=== PATIENT | female | born 1940 | race Caucasian/White ===

== ENCOUNTER 2022-03-22 14:10 | Inpatient (IN) ==
[2022-03-22] MEDS ORDERED: 0.9 % SODIUM CHLORIDE 250 ML IV SCH (14:30)
--- NOTE | 2022-03-22 14:37 | Emergency Department Note ---
HPI General Chief complaint: Bleeding Other Stated complaint: bleeding ulcer Time Seen by Provider: 03/22/22 14:16 Source: patient Mode of arrival: ambulatory Limitations: no limitations History of Present Illness HPI Narrative: Narrative: 81-year-old female presents to the emergency department concerned she may have an upper GI bleed. This is happened to her in the past. She does take omeprazole and is also taking Eliquis. Patient states that for the past 5 days she has had black stools. She has had no change in the frequency or consistency of her stools. She denies abdominal pain, nausea, vomiting, or change in appetite. She denies any recent changes in her medication. Patient has no other complaints today. Related Data Home Medications Medication Instructions Recorded Confirmed atorvastatin 20 mg tablet 10 mg PO HS 11/08/17 03/27/19 brimonidine 0.2 %-timolol 0.5 % 1 drp BOTH EYES Q12H 11/08/17 03/27/19 eye drops (Combigan) levothyroxine 125 mcg tablet 125 mcg PO DAILY 11/08/17 03/27/19 travoprost 0.004 % eye drops 1 gtt OU HS 11/08/17 03/27/19 (Travatan Z) ascorbate calcium (vitamin C) 500 500 mg PO QDAY 12/24/18 03/27/19 mg tablet denosumab [Prolia] SUBCUT 12/24/18 12/24/18 multivitamin [Multivitamins FC] PO 12/24/18 12/24/18 omeprazole 40 mg capsule,delayed 40 mg PO QDAY 12/24/18 03/27/19 release Allergies Allergy/AdvReac Type Severity Reaction Status Date / Time No Known Drug Allergies Allergy Verified 09/29/19 10:08 Review of Systems ROS ROS Narrative: Narrative: All systems ED: reviewed and negative except as stated. PFSH Narrative Patient History Narrative: Narrative: Medical/Surgical/Family History All Active Problems (Updated 03/22/22 @ 15:47 by Shelby Robbins PA-C) Neoplasm (Chronic) Bilateral hydronephrosis (Chronic) Ulcer (Chronic) GI bleed (Chronic) Iron deficiency (Chronic) Mixed hyperlipidemia (Chronic) Chronic kidney disease, stage 3 (Chronic) Chest pain (Chronic) Anemia (Chronic) Hypothyroidism (Chronic) Hypertension (Chronic) Other disorders of kidney and ureter in diseases classified elsewhere (Chronic) Nocturia (Chronic) Medical History (Updated 03/22/22 @ 15:47 by Shelby Robbins PA-C) Anemia Bilateral hydronephrosis Chest pain Chronic kidney disease, stage 3 GI bleed Hypertension Hypothyroidism Iron deficiency Mixed hyperlipidemia Neoplasm Urothelial neoplasm Nocturia Other disorders of kidney and ureter in diseases classified elsewhere Ulcer Surgical History (Updated 12/24/18 @ 09:05 by Renata Hodge) History of arthroscopy of left knee (~2011) History of arthroscopy of right knee (~2002) History of cholecystectomy (~2012) History of dilation and curettage (~1993) History of endoscopy Family History (Updated 12/24/18 @ 09:34 by Renata Hodge) Other No pertinent family history Social History Smoking Status: Never smoker Alcohol Intake Frequency: does not drink Exam Narrative Narrative: Narrative: General Limitations: no limitations General appearance: Present alert and in no apparent distress Head Head: Present atraumatic and normocephalic Eye Eye: Present normal appearance and other (Conjunctive is not pale) ENT ENT: Present normal oropharynx Neck Neck: Absent lymphadenopathy Respiratory Respiratory: Present normal lung sounds bilaterally Cardiovascular Cardiovascular: Present normal heart sounds Adbominal Abdominal: Present soft and normal bowel sounds; Absent tenderness Rectal Rectal: Present normal rectal tone, heme (+) stool and black stool Extremities Extremities: Present normal inspection; Absent pedal edema or calf tenderness Back Back: Present normal inspection; Absent CVA tenderness (R) or CVA tenderness (L) Neurological Neurological: Present alert and oriented X3 Psychiatric Psychiatric: Present normal affect Skin Skin: Present warm (WNL) and dry Course Course Course Narrative: Labs were reviewed per the electronic health record. Patient was dosed with Protonix 80 mg IV. I spoke with Dr. Guevara who is agreed to scope her tomorrow but requested that a hospitalist admit her. I spoke with Dr. Peralta who has agreed to admit this patient. After speaking with Dr. Peralta, IV normal saline was ordered. Vital Signs Vital signs: Vital Signs Temperature 98.1 F 03/22/22 14:12 Pulse Rate 71 03/22/22 14:12 Respiratory Rate 16 03/22/22 14:12 Blood Pressure 154/77 03/22/22 14:12 Pulse Oximetry (%) 96 03/22/22 14:12 Temperature 98.1 F 03/22/22 14:12 Pulse Rate 65 03/22/22 15:30 Respiratory Rate 16 03/22/22 14:12 Blood Pressure 129/74 03/22/22 15:30 Pulse Oximetry (%) 99 03/22/22 15:30 MDM MDM Narrative Medical decision making narrative: Narrative: Lab Data Result diagrams: 03/22/22 14:37 03/22/22 14:37 Labs: Lab Results 03/22/22 03/22/22 Range/Units 14:37 14:42 WBC 5.2 (4.5-11.0) K/mcL RBC 3.10 L (3.59-5.38) M/mcL Hgb 8.8 L (11.2-15.7) g/dL Hct 28.5 L (34.1-44.9) % POC Hct 25.0 L (36-48) MCV 91.9 (80.0-100.0) fL MCH 28.4 (26.0-34.0) pg MCHC 30.9 L (31.0-36.0) g/dL RDW 13.2 (11.5-14.5) % Plt Count 193 (140-440) K/mcL MPV 10.2 (7.4-10.4) fL Neut % (Auto) 69.7 (38.0-78.0) % Lymph % (Auto) 19.0 (15.5-49.0) % [place] % (Auto) 9.7 (1.0-12.0) % Eos % (Auto) 1.0 (0.0-7.0) % Baso % (Auto) 0.6 (0.0-2.0) % Lymph # (Auto) 0.98 L (1.50-4.80) K/mcL [place] # (Auto) 0.50 (0.10-0.90) K/mcL Eos # (Auto) 0.05 (0.00-0.70) K/mcL Baso # (Auto) 0.03 (0.00-0.30) K/mcL Absolute Neutrophils 3.60 (1.80-8.00) K/mcL POC Sodium 143 (133-145) POC Potassium 3.7 (3.3-5.1) POC Chloride 111 H (96-108) POC Total CO2 21.0 L (22-30) POC BUN 32 H (6-20) POC Creatinine 1.8 H (0.6-1.2) POC Glucose 106 H (70-105) POC WB Ioniz Calcium 1.20 (1.16-1.32) Discharge Plan Patient/Caregiver Discharge Instructions Pt seen by SALVAGE GRINDER/PA only: Yes Clinical Impression: GI bleed Patient Disposition: Xfer As Inpt ([facility]) Follow up with: Carri Brown MD [Primary Care Provider] - Prescriptions: No Action omeprazole 40 mg capsule,delayed release 40 mg capsule,delayed release(DR/EC) 40 mg PO QDAY 0RF ascorbate calcium (vitamin C) 500 mg tablet 500 mg PO QDAY 0RF denosumab subcut 0RF multivitamin PO 0RF atorvastatin 20 MG tablet 10 mg PO HS 0RF travoprost [Travatan Z] 1 GTT drops 1 gtt OU HS 0RF levothyroxine 125 MCG tablet 125 mcg PO DAILY 0RF brimonidine-timolol [Combigan] 5 ML drops 1 drp BOTH EYES Q12H 0RF
[2022-03-22 14:47] LABS: POC Calcium, Ionized 1.2 (1.16-1.32); POC Creatinine 1.8 (0.6-1.2); POC Potassium 3.7 (3.3-5.1)
[2022-03-22] MEDS ORDERED: PANTOPRAZOLE 40 MG VIAL IV ONE (14:56)
[2022-03-22 15:28] LABS: Basophils # (Auto) 0.03 K/mcL (0.00-0.30); Basophils % (Auto) 0.6 % (0.0-2.0); Eosinophils # (Auto) 0.05 K/mcL (0.00-0.70); Hematocrit 28.5 % (34.1-44.9); Hemoglobin 8.8 g/dL (11.2-15.7); Lymphocytes # (Auto) 0.98 K/mcL (1.50-4.80); Mean Cell Volume 91.9 fL (80.0-100.0); Mean Corpuscular HGB Conc 30.9 g/dL (31.0-36.0); Mean Platelet Volume 10.2 fL (7.4-10.4); Monocytes % (Auto) 9.7 % (1.0-12.0); Neutrophils % (Auto) 69.7 % (38.0-78.0); Platelet Count 193 K/mcL (140-440); Red Cell Distribution Width 13.2 % (11.5-14.5); WBC 5.2 K/mcL (4.5-11.0)
[2022-03-22] MEDS ORDERED: 0.9 % SODIUM CHLORIDE 1,000 ML IV ONE (15:44)
--- NOTE | 2022-03-22 16:06 | Internal Med History&Physical ---
HPI History of Present Illness Patient information: Note initiated : 03/22/22 at 4:04 pm Service Date, if different from initiated Date: [] Patient: Judi Haro a 81 y/o F admitted on for bleeding ulcer. Chief Complaint: [black stool] Chief complaint: black stool History of present illness: Ms. Haro is a 81 year old F history of kidney cancer status post nephrectomy, pulmonary embolism on Eliquis, essential hypertensions, mixed dyslipidemia, hypothyroidism, chronic kidney disease stage III, presenting with 5-day history of black stool. Last prior similar episode about 8 or 9 years ago. Over the past 5 days, she is complaining of having black stool. She denies any bright red blood per rectum. She denies any hematemesis. She denies any nausea or vomiting. She denies any abdominal pain. She denies any chest pain or palpitations. She denies any shortness of breath. She denies any lightheadedness. Vital signs at ED presentations appears to be all within normal limits. H&H 8.8 and 28.5, with baseline 14.5 and 44.2, respectively. Serum creatinine level 1.8 with baseline 1.2. Admission request was made for likely upper GI bleeding with general surgeon Dr. Guevara being consulted on the case. Constitutional Constitutional: Absent chills, excessive sweating, fatigue, fever(s) or weakness EENT Eyes: Absent blurry vision, change in vision, loss of vision or other visual disturbances Ears: Absent decreased hearing or tinnitus Nose, mouth and throat: Absent abnormal hearing, dry mouth, headache(s), nasal congestion or sore throat Cardiovascular Cardiovascular: Absent chest pain, chest pain at rest, edema, irregular heart rhythm or palpatations Respiratory Respiratory: Absent cough, dyspnea or wheezing Gastrointestinal Gastrointestinal: Absent abdominal pain, constipation, diarrhea, nausea or vomiting Additional comments: Black stool Musculoskeletal Musculoskeletal: Absent back pain, deformity, limited range of motion, muscle cramps, muscle weakness or numbness Integumentary Integumentary: Absent lesions, rash or wounds Neurological Neurological: Absent focal weakness, headache(s) or numbness Psychiatric Psychiatric: Absent anxiety, depression or hallucinations PFSH PFSH All Active Problems (Updated 03/22/22 @ 16:17 by Jeremiah Peralta MD) Stage 1 acute kidney injury (Acute) Upper gastrointestinal bleeding (Acute) Neoplasm (Chronic) Bilateral hydronephrosis (Chronic) Ulcer (Chronic) GI bleed (Chronic) Iron deficiency (Chronic) Mixed hyperlipidemia (Chronic) Chronic kidney disease, stage 3 (Chronic) Chest pain (Chronic) Anemia (Chronic) Hypothyroidism (Chronic) Hypertension (Chronic) Other disorders of kidney and ureter in diseases classified elsewhere (Chronic) Nocturia (Chronic) Medical History (Updated 03/22/22 @ 16:17 by Jeremiah Peralta MD) Anemia Bilateral hydronephrosis Chest pain Chronic kidney disease, stage 3 GI bleed Hypertension Hypothyroidism Iron deficiency Mixed hyperlipidemia Neoplasm Urothelial neoplasm Nocturia Other disorders of kidney and ureter in diseases classified elsewhere Ulcer Surgical History (Updated 12/24/18 @ 09:05 by Renata Hodge) History of arthroscopy of left knee (~2011) History of arthroscopy of right knee (~2002) History of cholecystectomy (~2012) History of dilation and curettage (~1993) History of endoscopy Family History (Updated 12/24/18 @ 09:34 by Renata Hodge) Other No pertinent family history Social History (Updated 12/24/18 @ 09:00 by Renata Hodge) alcohol intake frequency: does not drink MEDS/ALLERGIES Home Medications and Allergies Home Medications Medication Instructions Recorded Confirmed Type atorvastatin 20 mg tablet 10 mg PO HS 11/08/17 03/27/19 History brimonidine 0.2 %-timolol 0.5 % 1 drp BOTH EYES Q12H 11/08/17 03/27/19 History eye drops (Combigan) levothyroxine 125 mcg tablet 125 mcg PO DAILY 11/08/17 03/27/19 History travoprost 0.004 % eye drops 1 gtt OU HS 11/08/17 03/27/19 History (Travatan Z) ascorbate calcium (vitamin C) 500 500 mg PO QDAY 12/24/18 03/27/19 History mg tablet denosumab [Prolia] SUBCUT 12/24/18 12/24/18 History multivitamin [Multivitamins FC] PO 12/24/18 12/24/18 History omeprazole 40 mg capsule,delayed 40 mg PO QDAY 12/24/18 03/27/19 History release Allergies Allergy/AdvReac Type Severity Reaction Status Date / Time No Known Drug Allergies Allergy Verified 09/29/19 10:08 EXAM Constitutional Vitals: Temp Pulse Resp BP Pulse Ox 36.7 C 73 16 133/102 98 03/22/22 14:12 03/22/22 15:41 03/22/22 14:12 03/22/22 15:41 03/22/22 15:41 General appearance: cooperative and no acute distress Head Head exam: Present atraumatic and normocephalic Eye Eye exam: Present EOMI and PERRL ENT ENT exam: Present mucous membranes moist, normal exam and normal external ear exam Neck Neck exam: Present normal inspection; Absent lymphadenopathy, tenderness or thyromegaly Respiratory Respiratory exam: Absent accessory muscle use, respiratory distress or wheezes Cardiovascular Cardiovascular exam: Present normal rate and rhythm and systolic murmur; Absent JVD GI/Abdominal GI/Abdominal exam: Present normal bowel sounds and soft; Absent organomegaly or tenderness Extremities Exam Extremities exam: Present full ROM, normal capillary refill and normal inspection; Absent tenderness Neurological Exam Neurological exam: Present alert, CN II-XII intact and oriented X3; Absent motor sensory deficit Psychiatric Psychiatric exam: Present normal affect and normal mood; Absent anxious or depressed Skin Skin exam: Present dry and intact DATA Data Completed and Pending Labs: Labs from last 24 hours 03/22/22 03/22/22 03/22/22 14:42 14:37 14:37 WBC 5.2 RBC 3.10 L Hgb 8.8 L Hct 28.5 L POC Hct 25.0 L MCV 91.9 MCH 28.4 MCHC 30.9 L RDW 13.2 Plt Count 193 MPV 10.2 Neut % (Auto) 69.7 Lymph % (Auto) 19.0 [place] % (Auto) 9.7 Eos % (Auto) 1.0 Baso % (Auto) 0.6 Lymph # (Auto) 0.98 L [place] # (Auto) 0.50 Eos # (Auto) 0.05 Baso # (Auto) 0.03 Absolute Neutrophils 3.60 POC Sodium 143 Sodium Pending POC Potassium 3.7 Potassium Pending POC Chloride 111 H Chloride Pending Carbon Dioxide Pending POC Total CO2 21.0 L Anion Gap Pending POC BUN 32 H BUN Pending Creatinine Pending POC Creatinine 1.8 H GFR Calculation Pending Glucose Pending POC Glucose 106 H Calcium Pending POC WB Ioniz Calcium 1.20 Total Bilirubin Pending AST Pending ALT Pending Alkaline Phosphatase Pending Total Protein Pending Albumin Pending Globulin Pending Albumin/Globulin Ratio Pending A/P Assessment and plan (1) Upper gastrointestinal bleeding: Status: Acute (2) Chronic kidney disease, stage 3: Status: Chronic (3) Stage 1 acute kidney injury: Status: Acute (4) Hypothyroidism: Status: Chronic (5) Hypertension: Status: Chronic (6) Mixed hyperlipidemia: Status: Chronic Narrative A/P Narrative: Assessment and Plans: 1. GI bleeding, likely upper: Inpatient med surg telemetry Consult Dr. Guevara for potential endoscopy NPO with IV fluid Protonix IV BID Hold Eliquis H/H this evening, then cbc daily to trend H/H Type and cross pRBC 2. Essential HTN: Currently normotensive Continue oral antihypertensives 3. Mixed dyslipidemia: Continue statin therapy 4. Hypothyroidism: Continue thyroid replacement therapy 5. Stage 1 ZACHARY in the context of CKD III: Avoid nephrotoxic agents NPO with IV fluid CMP in the morning to trend kidney functions GI ppx: Protonix IV BID DVT ppx: SCDs Code status: Full Prognosis: guarded Disposition: inpatient med surg telemetry Time Spent With Patient Time: Total time spent is greater than 50% in coordination of care (as documented) at patient's floor/unit and/or counseling patient: Total time spent with greater than 50% in coordination of care (as documented) at patient's floor/unit and/or counseling patient:: 50 - 70 minutes
[2022-03-22 16:49] LABS: ALT/SGPT 11 U/L (<40); AST/SGOT 18 U/L (<32); Albumin 3.6 gm/dL (3.2-5.2); Albumin/Globulin Ratio 1.4 (1.0-2.3); Alkaline Phosphatase 32 U/L (39-117); Bilirubin,Total 0.3 mg/dL (0.1-1.0); Blood Urea Nitrogen 32 mg/dL (8-23); Calcium 9.2 mg/dL (8.6-10.4); Carbon Dioxide 20 mmol/L (22-30); Chloride 108 mmol/L (96-108); Globulin 2.5 gm/dL (2.2-3.7); Glomerular Filtration Rate 30; Glucose 105 mg/dL (70-105)
[2022-03-22] MEDS ORDERED: traZODone HCL 50 MG TABLET PO PRN (17:21)
[2022-03-22] MEDS ORDERED: ONDANSETRON 4 MG/2 ML VIAL IV PRN (17:21)
[2022-03-22] MEDS ORDERED: ACETAMINOPHEN 325 MG TABLET PO PRN (17:21)
[2022-03-22] MEDS ORDERED: IPRATROPIUM/ALBUTEROL 3 ML AMPUL.NEB NEB PRN (17:21)
[2022-03-22] MEDS: 0.9 % SODIUM CHLORIDE 1,000 ML IV SCH (18:23)
[2022-03-22] MEDS: PANTOPRAZOLE 40 MG VIAL IV SCH (18:24)
[2022-03-22 18:50] LABS: Hematocrit 26.3 % (34.1-44.9); Hemoglobin 8.4 g/dL (11.2-15.7)
[2022-03-22] MEDS: ATORVASTATIN 20 MG TABLET PO SCH (20:52)
[2022-03-22] MEDS: 0.9 % SODIUM CHLORIDE 10 ML SYRINGE IV SCH (20:53)
[2022-03-22] MEDS: BRIMONIDINE TIMOLOL OU SCH (20:53)
[2022-03-22] MEDS: TRAVOPROST OPHTH DROPS BOTTLE 2.5ML OU SCH (20:53)
[2022-03-23] MEDS: 0.9 % SODIUM CHLORIDE 10 ML SYRINGE IV SCH ×3 (04:53→20:24)
[2022-03-23] MEDS: 0.9 % SODIUM CHLORIDE 1,000 ML IV SCH ×3 (04:53→22:58)
[2022-03-23 06:32] LABS: Basophils # (Auto) 0.04 K/mcL (0.00-0.30); Basophils % (Auto) 1.1 % (0.0-2.0); Eosinophils # (Auto) 0.11 K/mcL (0.00-0.70); Hematocrit 25.6 % (34.1-44.9); Lymphocytes # (Auto) 0.94 K/mcL (1.50-4.80); Lymphocytes % (Auto) 25.8 % (15.5-49.0); Mean Cell Volume 92.8 fL (80.0-100.0); Mean Corpuscular HGB Conc 31.3 g/dL (31.0-36.0); Monocytes # (Auto) 0.34 K/mcL (0.10-0.90); Monocytes % (Auto) 9.3 % (1.0-12.0); Neutrophils % (Auto) 60.8 % (38.0-78.0); Platelet Count 158 K/mcL (140-440); RBC 2.76 M/mcL (3.59-5.38); Red Cell Distribution Width 13.2 % (11.5-14.5); WBC 3.7 K/mcL (4.5-11.0)
[2022-03-23 07:04] LABS: ALT/SGPT 8 U/L (<40); AST/SGOT 15 U/L (<32); Albumin 3.4 gm/dL (3.2-5.2); Albumin/Globulin Ratio 1.9 (1.0-2.3); Alkaline Phosphatase 29 U/L (39-117); Bilirubin,Total 0.3 mg/dL (0.1-1.0); Blood Urea Nitrogen 20 mg/dL (8-23); Calcium 8.2 mg/dL (8.6-10.4); Carbon Dioxide 23 mmol/L (22-30); Chloride 112 mmol/L (96-108); Globulin 1.8 gm/dL (2.2-3.7); Glomerular Filtration Rate 35; Glucose 95 mg/dL (70-105)
[2022-03-23] MEDS: PANTOPRAZOLE 40 MG VIAL IV SCH ×2 (07:20→17:11)
[2022-03-23] MEDS: LEVOTHYROXINE 125 MCG TABLET PO SCH (07:20)
--- NOTE | 2022-03-23 08:53 | General Surgery Consult Note ---
HPI Data of Consult Patient: new to practice Consult date: 03/22/22 Primary Care Provider: Carri Brown Consult Narrative Chief complaint: GI bleed History of present illness: This is a pleasant 81-year-old female who presents with dark melanotic stools. She has a history of being on Eliquis for a DVT several years ago after having a joint replacement. She has a history of past GI bleed from what she describes as Shawn ulcers secondary to a hiatal hernia. She presents with a couple days worth of bleed with decrease in hematocrit. I was asked to see the patient to perform a EGD to diagnose of bleeding. cc:: CC: Jeremiah Peralta MD PFS PFSH All Active Problems Stage 1 acute kidney injury (Acute) Upper gastrointestinal bleeding (Acute) Neoplasm (Chronic) Bilateral hydronephrosis (Chronic) Ulcer (Chronic) GI bleed (Chronic) Iron deficiency (Chronic) Mixed hyperlipidemia (Chronic) Chronic kidney disease, stage 3 (Chronic) Chest pain (Chronic) Anemia (Chronic) Hypothyroidism (Chronic) Hypertension (Chronic) Other disorders of kidney and ureter in diseases classified elsewhere (Chronic) Nocturia (Chronic) Medical History Anemia Bilateral hydronephrosis Chest pain Chronic kidney disease, stage 3 GI bleed Hypertension Hypothyroidism Iron deficiency Mixed hyperlipidemia Neoplasm Urothelial neoplasm Nocturia Other disorders of kidney and ureter in diseases classified elsewhere Ulcer Surgical History History of arthroscopy of left knee (~2011) History of arthroscopy of right knee (~2002) History of cholecystectomy (~2012) History of dilation and curettage (~1993) History of endoscopy Family History Other No pertinent family history Social History alcohol intake frequency: does not drink MEDS/ALLERGIES Home Medications and Allergies Home Medications Medication Instructions Recorded Confirmed Type denosumab [Prolia] SUBCUT 12/24/18 12/24/18 History omeprazole 40 mg capsule,delayed 40 mg PO QDAY 12/24/18 03/22/22 History release apixaban 5 mg tablet (Eliquis) 1 tab PO BID 03/22/22 03/22/22 History atorvastatin 10 mg tablet 1 tab PO HS 03/22/22 03/22/22 History cholecalciferol (vitamin D3) 50 1 tab PO QDAY 03/22/22 03/22/22 History mcg (2,000 unit) tablet (Vitamin D3) ferrous sulfate 325 mg (65 mg 325 mg PO QAM 03/22/22 03/22/22 History iron) tablet (FeroSul) latanoprost 0.005 % eye drops 1 drp OPHTHALMIC (EYE) QPM 03/22/22 03/22/22 History levothyroxine 75 mcg tablet 1 tab PO QDAY 03/22/22 03/22/22 History valsartan 80 mg tablet 1 tab PO HS 03/22/22 03/22/22 History Allergies Allergy/AdvReac Type Severity Reaction Status Date / Time No Known Drug Allergies Allergy Verified 09/29/19 10:08 Physical Examination Vital Signs Vital signs: Temp Pulse Resp BP Pulse Ox 97.0 F 66 16 146/79 96 03/23/22 08:00 03/23/22 08:00 03/23/22 08:00 03/23/22 08:00 03/23/22 08:00 General physical appearance General physical exam: well developed, well nourished and no distress Eyes Eye exam: PERRL and normal ocular movement ENT ENT exam: normal pinna, normal nares, normal mucosa, no hearing loss and no congestion Head Head exam IM: Present atraumatic and normocephalic Neck Neck exam: no masses, no bruits, trachea midline, no lymphadenopathy and no venous distension Cardiovascular Cardiovascular exam IM: Present normal rate and rhythm Respiratory Respiratory exam: normal expansion, normal respiratory effort, clear to percussion and clear to auscultation Abdomen Abdomen: Present soft, non tender and bowel sounds Hernia: Present none Genitourinary Genitourinary (Female): Present normal external genitalia Rectum Rectum: Present normal sphincter tone, no hemorrhoids, no tenderness, no masses and no bleeding Integumentary Integumentary: Present no rash, no growths and no abnormal pigmentation Neurologic Neurologic: Present normal coordination and normal sensation Musculoskeletal Musculoskeletal: Present normal gait and normal posture Psychiatric Psychiatric: Present oriented to time, oriented to person, oriented to place, speech is normal and memory intact Results Labs Result diagrams: 03/23/22 05:23 03/23/22 05:23 Labs: Abnormal lab results 03/22/22 03/22/22 03/22/22 Range/Units 14:37 14:37 14:42 WBC (4.5-11.0) K/mcL RBC 3.10 L (3.59-5.38) M/mcL Hgb 8.8 L (11.2-15.7) g/dL Hct 28.5 L (34.1-44.9) % POC Hct 25.0 L (36-48) MCHC 30.9 L (31.0-36.0) g/dL Lymph # (Auto) 0.98 L (1.50-4.80) K/mcL POC Chloride 111 H (96-108) Chloride (96-108) mmol/L Carbon Dioxide 20 L (22-30) mmol/L POC Total CO2 21.0 L (22-30) Anion Gap (8.0-16.0) POC BUN 32 H (6-20) BUN 32 H (8-23) mg/dL Creatinine 1.6 H (0.6-1.1) mg/dL POC Creatinine 1.8 H (0.6-1.2) POC Glucose 106 H (70-105) Calcium (8.6-10.4) mg/dL Alkaline Phosphatase 32 L (39-117) U/L Total Protein (5.9-8.4) gm/dL Globulin (2.2-3.7) gm/dL 03/22/22 03/23/22 03/23/22 Range/Units 18:16 05:23 05:23 WBC 3.7 L (4.5-11.0) K/mcL RBC 2.76 L (3.59-5.38) M/mcL Hgb 8.4 L 8.0 L (11.2-15.7) g/dL Hct 26.3 L 25.6 L (34.1-44.9) % POC Hct (36-48) MCHC (31.0-36.0) g/dL Lymph # (Auto) 0.94 L (1.50-4.80) K/mcL POC Chloride (96-108) Chloride 112 H (96-108) mmol/L Carbon Dioxide (22-30) mmol/L POC Total CO2 (22-30) Anion Gap 6.0 L (8.0-16.0) POC BUN (6-20) BUN (8-23) mg/dL Creatinine 1.4 H (0.6-1.1) mg/dL POC Creatinine (0.6-1.2) POC Glucose (70-105) Calcium 8.2 L (8.6-10.4) mg/dL Alkaline Phosphatase 29 L (39-117) U/L Total Protein 5.2 L (5.9-8.4) gm/dL Globulin 1.8 L (2.2-3.7) gm/dL Diabetes panel 03/22/22 03/23/22 Range/Units 14:37 05:23 Sodium 140 141 (133-145) mmol/L Potassium 3.7 4.0 (3.3-5.1) mmol/L Chloride 108 112 H (96-108) mmol/L Carbon Dioxide 20 L 23 (22-30) mmol/L BUN 32 H 20 (8-23) mg/dL Creatinine 1.6 H 1.4 H (0.6-1.1) mg/dL Glucose 105 95 (70-105) mg/dL Calcium 9.2 8.2 L (8.6-10.4) mg/dL AST 18 15 (<32) U/L ALT 11 8 (<40) U/L Alkaline Phosphatase 32 L 29 L (39-117) U/L Total Protein 6.1 5.2 L (5.9-8.4) gm/dL Albumin 3.6 3.4 (3.2-5.2) gm/dL Calcium panel 03/22/22 03/23/22 Range/Units 14:37 05:23 Calcium 9.2 8.2 L (8.6-10.4) mg/dL Albumin 3.6 3.4 (3.2-5.2) gm/dL Pituitary panel 03/22/22 03/23/22 Range/Units 14:37 05:23 Sodium 140 141 (133-145) mmol/L Potassium 3.7 4.0 (3.3-5.1) mmol/L Chloride 108 112 H (96-108) mmol/L Carbon Dioxide 20 L 23 (22-30) mmol/L BUN 32 H 20 (8-23) mg/dL Creatinine 1.6 H 1.4 H (0.6-1.1) mg/dL Glucose 105 95 (70-105) mg/dL Calcium 9.2 8.2 L (8.6-10.4) mg/dL Adrenal panel 03/22/22 03/23/22 Range/Units 14:37 05:23 Sodium 140 141 (133-145) mmol/L Potassium 3.7 4.0 (3.3-5.1) mmol/L Chloride 108 112 H (96-108) mmol/L Carbon Dioxide 20 L 23 (22-30) mmol/L BUN 32 H 20 (8-23) mg/dL Creatinine 1.6 H 1.4 H (0.6-1.1) mg/dL Glucose 105 95 (70-105) mg/dL Calcium 9.2 8.2 L (8.6-10.4) mg/dL Total Bilirubin 0.3 0.3 (0.1-1.0) mg/dL AST 18 15 (<32) U/L ALT 11 8 (<40) U/L Alkaline Phosphatase 32 L 29 L (39-117) U/L Total Protein 6.1 5.2 L (5.9-8.4) gm/dL Albumin 3.6 3.4 (3.2-5.2) gm/dL All other labs normal. A/P Assessment and plan (1) Upper gastrointestinal bleeding: Plan: This is a pleasant 81-year-old female with a prior history of upper GI bleed who presents with an apparent upper GI bleed. Risk, benefits, alternatives to EGD discussed with her at length. She verbalizes understanding and desires to continue. Plan: I will add her on for EGD today. Follow-up based on EGD results. Status: Acute (2) Stage 1 acute kidney injury: Status: Acute Time Spent With Patient Time: Total time spent is greater than 50% in coordination of care (as documented) at patient's floor/unit and/or counseling patient:
[2022-03-23] MEDS: ASCORBIC ACID 500 MG TABLET PO SCH (09:26)
[2022-03-23] MEDS: BRIMONIDINE TIMOLOL OU SCH ×2 (09:26→20:18)
--- NOTE | 2022-03-23 10:15 | Internal Med Progress Note ---
SUBJECTIVE Subjective Patient information: Note initiated : 03/23/22 at 10:12 am Service Date, if different from initiated Date: [] Patient: Judi Haro a 81 y/o F admitted on 03/22/22 for bleeding ulcer. Chief Complaint: [] Interval history: History of present illness: Ms. Haro is a 81 year old F history of kidney cancer status post nep hrectomy, pulmonary embolism on Eliquis, essential hypertensions, mixed dyslipidemia, hypothyroidism, chronic kidney disease stage III, presenting with 5-day history of black stool. Last prior similar episode about 8 or 9 years ago. Over the past 5 days, she is complaining of having black stool. She denies any bright red blood per rectum. She denies any hematemesis. She denies any nausea or vomiting. She denies any abdominal pain. She denies any chest pain or palpitations. She denies any shortness of breath. She denies any lightheadedness. Vital signs at ED presentations appears to be all within normal limits. H&H 8.8 and 28.5, with baseline 14.5 and 44.2, respectively. Serum creatinine level 1.8 with baseline 1.2. Admission request was made for likely upper GI bleeding with general surgeon Dr. Guevara being consulted on the case. 03/23: H/H stable overnight. No bowel movement overnight. No hematemesis. Denies abdominal pain. Denies chest pain or palpitation. Denies shortness of breath. Denies lightheadedness. Pending EGD this afternoon. Continue Protonix IV BID. Continue to hold Eliquis. Constitutional Vitals: Vital Signs Temp Pulse Resp BP Pulse Ox 36.1 C 66 16 146/79 96 03/23/22 08:00 03/23/22 08:00 03/23/22 08:00 03/23/22 08:00 03/23/22 08:00 Period Temp Pulse Resp BP Sys/Reinoso Pulse Ox Last 24 Hr 36.1 C-36.7 C 60-107 16-16 129-156/73-102 91-99 Intake and Output 03/22/22 03/23/22 03/23/22 21:59 05:59 13:59 Intake Total 1000 1000 Output Total 175 925 500 Balance 825 75 -500 Weight 79.923 kg Intake & Output: Intake & Output 03/22/22 03/23/22 03/23/22 21:59 05:59 13:59 Intake Total 1000 1000 Output Total 175 925 500 Balance 825 75 -500 Weight 79.923 kg Intake: IV 1000 1000 Sodium Chloride 0.9% 1,000 ml @ 1000 1000 100 mls/hr IV .Q10H [facility] Rx#: [id number] Oral 0 Output: Void Amount 175 925 500 Other: Urine Appearance Clear Clear Clear Urine Color Bright Yellow Bright Yellow Pale Urine Odor Normal Head Head exam: Present atraumatic and normal inspection Eye Eye exam: Present normal appearance ENT ENT exam: Present mucous membranes moist, normal exam and normal external ear exam Neck Neck exam: Present normal inspection Respiratory Respiratory exam: Present normal respiratory exam Cardiovascular Cardiovascular exam: Present normal rate and rhythm GI/Abdominal GI/Abdominal exam: Present normal bowel sounds Back Exam Back exam: Present normal inspection Neurological Exam Neurological exam: Present alert and oriented X3 Skin Skin exam: Present intact and warm OBJ DATA Labs CBC & Chem 7: 03/23/22 05:23 03/23/22 05:23 Labs: Abnormal Lab Results 03/23/22 03/23/22 03/22/22 05:23 05:23 18:16 WBC 3.7 L RBC 2.76 L Hgb 8.0 L 8.4 L Hct 25.6 L 26.3 L POC Hct MCHC Lymph # (Auto) 0.94 L POC Chloride Chloride 112 H Carbon Dioxide POC Total CO2 Anion Gap 6.0 L POC BUN BUN Creatinine 1.4 H POC Creatinine POC Glucose Calcium 8.2 L Alkaline Phosphatase 29 L Total Protein 5.2 L Globulin 1.8 L 03/22/22 03/22/22 03/22/22 14:42 14:37 14:37 WBC RBC 3.10 L Hgb 8.8 L Hct 28.5 L POC Hct 25.0 L MCHC 30.9 L Lymph # (Auto) 0.98 L POC Chloride 111 H Chloride Carbon Dioxide 20 L POC Total CO2 21.0 L Anion Gap POC BUN 32 H BUN 32 H Creatinine 1.6 H POC Creatinine 1.8 H POC Glucose 106 H Calcium Alkaline Phosphatase 32 L Total Protein Globulin Meds: Medications Acetaminophen (Acetaminophen 325 Mg Tablet) 650 mg PO Q6HP PRN; Protocol PRN Reason: Per Pain Protocol/Fever > 101 Last Admin: 03/22/22 20:58 Dose: 650 mg Documented by: Albuterol/Ipratropium (Ipratropium/Albuterol 3 Ml Ampul.Neb) 3 ml NEB Q4HRT PRN PRN Reason: Wheezing Ascorbic Acid (Ascorbic Acid 500 Mg Tablet) 500 mg PO DAILY [facility] Last Admin: 03/23/22 09:26 Dose: Not Given Documented by: Atorvastatin Calcium (Atorvastatin 20 Mg Tablet) 10 mg PO HS [facility] Last Admin: 03/22/22 20:52 Dose: 10 mg Documented by: Atorvastatin Calcium (Atorvastatin 10 Mg Tablet) mg PO HS [facility] Ferrous Sulfate (Ferrous Sulfate 325 Mg Tablet) 325 mg PO QAM [facility] Sodium Chloride (Sodium Chloride 0.9%) 1,000 mls @ 100 mls/hr IV .Q10H [facility] Last Admin: 03/23/22 04:53 Dose: 100 mls/hr Documented by: Latanoprost (Latanoprost Ophth Drops 2.5ml Bottle) gtt OU QPM [facility] Levothyroxine Sodium (Levothyroxine 125 Mcg Tablet) 125 mcg PO ACB [facility] Last Admin: 03/23/22 07:20 Dose: 125 mcg Documented by: Levothyroxine Sodium (Levothyroxine 75 Mcg Tablet) mcg PO QDAY [facility] Non-Formulary Medication (Cholecalciferol (Vitamin D3) [Vitamin D3]) 1 tab PO QDAY [facility] Non-Formulary Medication (Valsartan) 1 tab PO HS [facility] Ondansetron HCl (Ondansetron 4 Mg/2 Ml Vial) 4 mg IV Q6HP PRN PRN Reason: Nausea And Vomiting Pantoprazole Sodium (Pantoprazole 40 Mg Vial) 40 mg IV BIDAC [facility] Last Admin: 03/23/22 07:20 Dose: 40 mg Documented by: Brimonidine-Timolol [Combigan] 0.2%-0.5% Ophthalmic Drops 1 dose OU Q12H [facility] Last Admin: 03/23/22 09:26 Dose: Not Given Documented by: Sodium Chloride (0.9 % Sodium Chloride 10 Ml Syringe) 10 ml IV Q8 [facility] Last Admin: 03/23/22 04:53 Dose: Not Given Documented by: Travoprost (Travoprost Ophth Drops Bottle 2.5ml) 1 gtt OU HS [facility] Last Admin: 03/22/22 20:53 Dose: Not Given Documented by: Trazodone HCl (Trazodone Hcl 50 Mg Tablet) 25 mg PO HSP PRN PRN Reason: Insomnia A/P Assessment and plan (1) Upper gastrointestinal bleeding: Status: Acute (2) Chronic kidney disease, stage 3: Status: Chronic (3) Stage 1 acute kidney injury: Status: Acute (4) Hypothyroidism: Status: Chronic (5) Hypertension: Status: Chronic (6) Mixed hyperlipidemia: Status: Chronic Narrative A/P Narrative: Assessment and Plans: 1. GI bleeding, likely upper: Inpatient med surg telemetry Consult Dr. Guevara, EGD this afternoon NPO with IV fluid Protonix IV BID Hold Eliquis cbc daily to trend H/H Type and cross pRBC 2. Essential HTN: Currently normotensive Continue oral antihypertensives 3. Mixed dyslipidemia: Continue statin therapy 4. Hypothyroidism: Continue thyroid replacement therapy 5. Stage 1 ZACHARY in the context of CKD III: Kidney functions back to baseline Avoid nephrotoxic agents NPO with IV fluid CMP in the morning to trend kidney functions GI ppx: Protonix IV BID DVT ppx: SCDs Code status: Full Prognosis: Stable Disposition: inpatient med surg telemetry Time Spent With Patient Time: Total time spent is greater than 50% in coordination of care (as documented) at patient's floor/unit and/or counseling patient: Total time spent with greater than 50% in coordination of care (as documented) at patient's floor/unit and/or counseling patient:: 35 - 50 minutes QUALITY VTE Deep Vein Thrombosis/Pulmonary Embolism Present on Admission: No
[2022-03-23] MEDS ORDERED: ONDANSETRON 4 MG/2 ML VIAL ONE (13:26)
[2022-03-23] MEDS ORDERED: LIDOCAINE HCL/PF 100 MG/5 ML SYRINGE IV ONE (13:26)
[2022-03-23] MEDS ORDERED: GLYCOPYRROLATE 0.2 MG/ML VIAL IV ONE (13:26)
[2022-03-23] MEDS ORDERED: PROPOFOL 200 MG/20 ML VIAL IV ONE (13:26)
--- NOTE | 2022-03-23 13:42 | EGD Procedure Note ---
EGD Procedure Notes Procedure Information Patient information: Note initiated : 03/23/22 at 1:41 pm Patient: Judi Haro 81 y/o F admitted on 03/22/22 for bleeding ulcer. Pre-op diagnosis general: GI bleed Post-Op Diagnosis general: Large hiatal hernia Date of Procedure: 03/23/22 Procedure: Esophogogastroduodenoscopy Procedure Narrative: After risk benefits and alternatives to the procedure were discussed with the patient at length she verbalized understanding and desire to continue with the procedure. Patient was taken to endoscopy. Surgical timeout was taken to verify patient and procedure being performed sedation was administered by anesthesia. An adult gastroscope was entered and advanced under direct vision into the second portion of the duodenum. The antrum was fully inspected, the scope was retroflexed in the stomach. Full examination revealed large hiatal hernia with approximately half to a third of the stomach in the chest, no evidence for Shawn ulcers, no evidence of gastric ulcers or duodenal ulcers. No cause of GI bleed. The GE junction was at 35 cm and the esophagus was normal on full exam. EBL none. Patient tolerated procedure well. Assessment: Large hiatal hernia. No clear evidence of GI bleed.
[2022-03-23] MEDS ORDERED: PEG 3350/NA SULF,BICARB,CL/KCL 4,000 ML ORAL.SOL PO ONE (16:35)
[2022-03-23] MEDS: TRAVOPROST OPHTH DROPS BOTTLE 2.5ML OU SCH (20:18)
[2022-03-23] MEDS: ATORVASTATIN 20 MG TABLET PO SCH (20:23)
[2022-03-23] MEDS ORDERED: LATANOPROST OPHTH DROPS 2.5ML BOTTLE OU SCH (21:00)
[2022-03-23] MEDS ORDERED: ATORVASTATIN 10 MG TABLET PO SCH (21:00)
[2022-03-23] MEDS ORDERED: LOSARTAN 50 MG TABLET PO SCH (21:00)
[2022-03-24] MEDS: 0.9 % SODIUM CHLORIDE 10 ML SYRINGE IV SCH ×2 (05:07→13:54)
[2022-03-24 07:16] LABS: Basophils # (Auto) 0.03 K/mcL (0.00-0.30); Basophils % (Auto) 0.5 % (0.0-2.0); Eosinophils # (Auto) 0.18 K/mcL (0.00-0.70); Eosinophils % (Auto) 3.2 % (0.0-7.0); Hemoglobin 8.7 g/dL (11.2-15.7); Lymphocytes # (Auto) 0.97 K/mcL (1.50-4.80); Lymphocytes % (Auto) 17.1 % (15.5-49.0); Mean Cell Volume 95.1 fL (80.0-100.0); Mean Platelet Volume 9.9 fL (7.4-10.4); Monocytes # (Auto) 0.48 K/mcL (0.10-0.90); Monocytes % (Auto) 8.5 % (1.0-12.0); Neutrophils % (Auto) 70.7 % (38.0-78.0); Platelet Count 193 K/mcL (140-440); RBC 3.05 M/mcL (3.59-5.38); Red Cell Distribution Width 13.2 % (11.5-14.5); WBC 5.7 K/mcL (4.5-11.0)
[2022-03-24] MEDS: LEVOTHYROXINE 125 MCG TABLET PO SCH (07:21)
[2022-03-24] MEDS: PANTOPRAZOLE 40 MG VIAL IV SCH (07:21)
[2022-03-24 07:34] LABS: ALT/SGPT 10 U/L (<40); AST/SGOT 21 U/L (<32); Albumin 3.6 gm/dL (3.2-5.2); Albumin/Globulin Ratio 1.4 (1.0-2.3); Alkaline Phosphatase 34 U/L (39-117); Bilirubin,Total 0.4 mg/dL (0.1-1.0); Blood Urea Nitrogen 16 mg/dL (8-23); Calcium 7.8 mg/dL (8.6-10.4); Carbon Dioxide 19 mmol/L (22-30); Chloride 111 mmol/L (96-108); Globulin 2.5 gm/dL (2.2-3.7); Glomerular Filtration Rate 38; Glucose 88 mg/dL (70-105)
[2022-03-24] MEDS: BRIMONIDINE TIMOLOL OU SCH (08:52)
[2022-03-24] MEDS: ASCORBIC ACID 500 MG TABLET PO SCH (08:52)
[2022-03-24] MEDS ORDERED: LEVOTHYROXINE 75 MCG TABLET PO SCH (09:00)
[2022-03-24] MEDS ORDERED: VITAMIN D3 25 MCG TABLET PO SCH (09:00)
[2022-03-24] MEDS ORDERED: FERROUS SULFATE 325 MG TABLET PO SCH (09:00)
--- NOTE | 2022-03-24 09:10 | Internal Med Progress Note ---
SUBJECTIVE Subjective Patient information: Note initiated : 03/24/22 at 9:07 am Service Date, if different from initiated Date: [] Patient: Judi Haro a 81 y/o F admitted on 03/22/22 for bleeding ulcer. Chief Complaint: [] Interval history: History of present illness: Ms. Haro is a 81 year old F history of kidney cancer status post neph rectomy, pulmonary embolism on Eliquis, essential hypertensions, mixed dyslipidemia, hypothyroidism, chronic kidney disease stage III, presenting with 5-day history of black stool. Last prior similar episode about 8 or 9 years ago. Over the past 5 days, she is complaining of having black stool. She denies any bright red blood per rectum. She denies any hematemesis. She denies any nausea or vomiting. She denies any abdominal pain. She denies any chest pain or palpitations. She denies any shortness of breath. She denies any lightheadedness. Vital signs at ED presentations appears to be all within normal limits. H&H 8.8 and 28.5, with baseline 14.5 and 44.2, respectively. Serum creatinine level 1.8 with baseline 1.2. Admission request was made for likely upper GI bleeding with general surgeon Dr. Guevara being consulted on the case. 03/23: H/H stable overnight. No bowel movement overnight. No hematemesis. Denies abdominal pain. Denies chest pain or palpitation. Denies shortness of breath. Denies lightheadedness. Pending EGD this afternoon. Continue Protonix IV BID. Continue to hold Eliquis. 03/24: H&H stable overnight. EGD did not show any signs of active or recent source of bleeding. Status post bowel prep last night, pending colonoscopy today at 1pm by Dr. Guevara. Continue Protonix IV BID. Continue to hold Eliquis. Patient denies any abdominal pain. She denies any chest pain or palpitations. She denies any lightheadedness. She denies any nausea or vomiting. She denies any hematemesis. Passing multiple brown stools last night. Constitutional Vitals: Vital Signs Temp Pulse Resp BP Pulse Ox 36.3 C 70 17 144/75 99 03/24/22 07:31 03/24/22 07:31 03/24/22 07:31 03/24/22 07:31 03/24/22 07:31 Period Temp Pulse Resp BP Sys/Reinoso Pulse Ox Last 24 Hr 36.3 C-37.0 C 61-73 16-21 120-150/61-82 97-100 Intake and Output 03/23/22 03/24/22 03/24/22 21:59 05:59 13:59 Intake Total 1182 867 Output Total 700 1450 200 Balance 482 -583 -200 Weight 80.921 kg Intake & Output: Intake & Output 03/23/22 03/24/22 03/24/22 21:59 05:59 13:59 Intake Total 1182 867 Output Total 700 1450 200 Balance 482 -583 -200 Weight 80.921 kg Intake: IV 942 867 Sodium Chloride 0.9% 1,000 ml @ 942 867 100 mls/hr IV .Q10H [facility] Rx#: [id number] Oral 240 0 Output: Void Amount 700 225 200 Urine/Stool Mix 1225 Other: Meal Dinner Percent of Meal Consumed 95% Feeding Ability Independent Urine Appearance Clear Clear Clear Urine Color Pale Pale Pale Urine Odor Normal Normal Stool Size Moderate Stool Color Black Stool Consistency Formed # Bowel Movements 1 # of times incontinent of 1 Bowels Head Head exam: Present atraumatic and normal inspection Eye Eye exam: Present normal appearance ENT ENT exam: Present mucous membranes moist, normal exam and normal external ear exam Neck Neck exam: Present normal inspection Respiratory Respiratory exam: Present normal respiratory exam Cardiovascular Cardiovascular exam: Present normal rate and rhythm GI/Abdominal GI/Abdominal exam: Present normal bowel sounds Back Exam Back exam: Present normal inspection Neurological Exam Neurological exam: Present alert and oriented X3 Skin Skin exam: Present intact and warm OBJ DATA Labs CBC & Chem 7: 03/24/22 05:23 03/24/22 05:23 Labs: Abnormal Lab Results 03/24/22 03/24/22 03/23/22 05:23 05:23 05:23 WBC RBC 3.05 L Hgb 8.7 L Hct 29.0 L POC Hct MCHC 30.0 L Lymph # (Auto) 0.97 L POC Chloride Chloride 111 H 112 H Carbon Dioxide 19 L POC Total CO2 Anion Gap 6.0 L POC BUN BUN Creatinine 1.3 H 1.4 H POC Creatinine POC Glucose Calcium 7.8 L 8.2 L Alkaline Phosphatase 34 L 29 L Total Protein 5.2 L Globulin 1.8 L 03/23/22 03/22/22 03/22/22 05:23 18:16 14:42 WBC 3.7 L RBC 2.76 L Hgb 8.0 L 8.4 L Hct 25.6 L 26.3 L POC Hct 25.0 L MCHC Lymph # (Auto) 0.94 L POC Chloride 111 H Chloride Carbon Dioxide POC Total CO2 21.0 L Anion Gap POC BUN 32 H BUN Creatinine POC Creatinine 1.8 H POC Glucose 106 H Calcium Alkaline Phosphatase Total Protein Globulin 03/22/22 03/22/22 14:37 14:37 WBC RBC 3.10 L Hgb 8.8 L Hct 28.5 L POC Hct MCHC 30.9 L Lymph # (Auto) 0.98 L POC Chloride Chloride Carbon Dioxide 20 L POC Total CO2 Anion Gap POC BUN BUN 32 H Creatinine 1.6 H POC Creatinine POC Glucose Calcium Alkaline Phosphatase 32 L Total Protein Globulin Meds: Medications Acetaminophen (Acetaminophen 325 Mg Tablet) 650 mg PO Q6HP PRN; Protocol PRN Reason: Per Pain Protocol/Fever > 101 Last Admin: 03/22/22 20:58 Dose: 650 mg Documented by: Albuterol/Ipratropium (Ipratropium/Albuterol 3 Ml Ampul.Neb) 3 ml NEB Q4HRT PRN PRN Reason: Wheezing Ascorbic Acid (Ascorbic Acid 500 Mg Tablet) 500 mg PO DAILY [facility] Last Admin: 03/24/22 08:52 Dose: Not Given Documented by: Atorvastatin Calcium (Atorvastatin 20 Mg Tablet) 10 mg PO HS [facility] Last Admin: 03/23/22 20:23 Dose: 10 mg Documented by: Ferrous Sulfate (Ferrous Sulfate 325 Mg Tablet) 325 mg PO QAM [facility] Last Admin: 03/24/22 08:52 Dose: Not Given Documented by: Sodium Chloride (Sodium Chloride 0.9%) 1,000 mls @ 100 mls/hr IV .Q10H [facility] Last Admin: 03/23/22 22:58 Dose: 100 mls/hr Documented by: Latanoprost (Latanoprost Ophth Drops 2.5ml Bottle) 1 gtt OU QPM [facility] Last Admin: 03/23/22 20:18 Dose: Not Given Documented by: Levothyroxine Sodium (Levothyroxine 125 Mcg Tablet) 125 mcg PO ACB [facility] Last Admin: 03/24/22 07:21 Dose: 125 mcg Documented by: Losartan Potassium (Losartan 50 Mg Tablet) 50 mg PO HS [facility] Last Admin: 03/23/22 20:23 Dose: 50 mg Documented by: Ondansetron HCl (Ondansetron 4 Mg/2 Ml Vial) 4 mg IV Q6HP PRN PRN Reason: Nausea And Vomiting Pantoprazole Sodium (Pantoprazole 40 Mg Vial) 40 mg IV BIDAC [facility] Last Admin: 03/24/22 07:21 Dose: 40 mg Documented by: Brimonidine-Timolol [Combigan] 0.2%-0.5% Ophthalmic Drops 1 dose OU Q12H [facility] Last Admin: 03/24/22 08:52 Dose: Not Given Documented by: Sodium Chloride (0.9 % Sodium Chloride 10 Ml Syringe) 10 ml IV Q8 [facility] Last Admin: 03/24/22 05:07 Dose: Not Given Documented by: Travoprost (Travoprost Ophth Drops Bottle 2.5ml) 1 gtt OU [facility] Last Admin: 03/23/22 20:18 Dose: Not Given Documented by: Trazodone HCl (Trazodone Hcl 50 Mg Tablet) 25 mg PO HSP PRN PRN Reason: Insomnia Vitamin D (Vitamin D3 25 Mcg Tablet) 25 mcg PO QDAY [facility] Last Admin: 03/24/22 08:52 Dose: Not Given Documented by: A/P Assessment and plan (1) Upper gastrointestinal bleeding: Status: Acute (2) Chronic kidney disease, stage 3: Status: Chronic (3) Stage 1 acute kidney injury: Status: Acute (4) Hypothyroidism: Status: Chronic (5) Hypertension: Status: Chronic (6) Mixed hyperlipidemia: Status: Chronic Narrative A/P Narrative: Assessment and Plans: 1. GI bleeding, likely upper: Inpatient med surg telemetry EGD 03/23 did not show any signs of active or recent source of bleeding. Status post bowel prep last night, pending colonoscopy today at 1pm by Dr. Guevara NPO with IV fluid Protonix IV BID Hold Eliquis cbc daily to trend H/H Type and cross pRBC 2. Essential HTN: Currently normotensive Continue oral antihypertensives 3. Mixed dyslipidemia: Continue statin therapy 4. Hypothyroidism: Continue thyroid replacement therapy 5. Stage 1 ZACHARY in the context of CKD III: Kidney functions back to baseline Avoid nephrotoxic agents NPO with IV fluid CMP in the morning to trend kidney functions GI ppx: Protonix IV BID DVT ppx: SCDs Code status: Full Prognosis: Stable Disposition: inpatient med surg telemetry Time Spent With Patient Time: Total time spent is greater than 50% in coordination of care (as documented) at patient's floor/unit and/or counseling patient: Total time spent with greater than 50% in coordination of care (as documented) at patient's floor/unit and/or counseling patient:: 35 - 50 minutes QUALITY VTE Deep Vein Thrombosis/Pulmonary Embolism Present on Admission: No
[2022-03-24] MEDS: 0.9 % SODIUM CHLORIDE 1,000 ML IV SCH (09:50)
[2022-03-24] MEDS ORDERED: MIDAZOLAM 2 MG/2 ML VIAL IV SCH (11:45)
[2022-03-24] MEDS ORDERED: PROPOFOL 200 MG/20 ML VIAL IV SCH (11:45)
[2022-03-24] MEDS ORDERED: FLEETS ADULT ENEMA PR ONE (12:14)
--- NOTE | 2022-03-24 12:43 | Internal Med Progress Note ---
SUBJECTIVE Subjective Patient information: Note initiated : 03/24/22 at 12:38 pm Service Date, if different from initiated Date: [] Patient: Judi Haro a 81 y/o F admitted on 03/22/22 for bleeding ulcer. Chief Complaint: [] Interval history: History of present illness: Ms. Haro is a 81 year old F history of kidney cancer status post nep hrectomy, pulmonary embolism on Eliquis, essential hypertensions, mixed dyslipidemia, hypothyroidism, chronic kidney disease stage III, presenting with 5-day history of black stool. Last prior similar episode about 8 or 9 years ago. Over the past 5 days, she is complaining of having black stool. She denies any bright red blood per rectum. She denies any hematemesis. She denies any nausea or vomiting. She denies any abdominal pain. She denies any chest pain or palpitations. She denies any shortness of breath. She denies any lightheadedness. Vital signs at ED presentations appears to be all within normal limits. H&H 8.8 and 28.5, with baseline 14.5 and 44.2, respectively. Serum creatinine level 1.8 with baseline 1.2. Admission request was made for likely upper GI bleeding with general surgeon Dr. Guevara being consulted on the case. 03/23: H/H stable overnight. No bowel movement overnight. No hematemesis. Denies abdominal pain. Denies chest pain or palpitation. Denies shortness of breath. Denies lightheadedness. Pending EGD this afternoon. Continue Protonix IV BID. Continue to hold Eliquis. 03/24: H&H stable overnight. EGD did not show any signs of active or recent source of bleeding. Status post bowel prep last night, pending colonoscopy today at 1pm by Dr. Guevara. Continue Protonix IV BID. Continue to hold Eliquis. Patient denies any abdominal pain. She denies any chest pain or palpitations. She denies any lightheadedness. She denies any nausea or vomiting. She denies any hematemesis. Passing multiple brown stools last night. 03/25 Constitutional Vitals: Vital Signs Temp Pulse Resp BP Pulse Ox 98.2 F 65 18 152/79 97 03/24/22 11:38 03/24/22 11:38 03/24/22 11:38 03/24/22 11:38 03/24/22 11:38 Period Temp Pulse Resp BP Sys/Reinoso Pulse Ox Last 24 Hr 97.3 F-98.6 F 61-73 16-21 120-152/61-82 97-100 Intake and Output 03/23/22 03/24/22 03/24/22 21:59 05:59 13:59 Intake Total 1840 495 3207 Output Total 700 1450 200 Balance 482 -583 800 Weight 80.921 kg Intake & Output: Intake & Output 03/23/22 03/24/22 03/24/22 21:59 05:59 13:59 Intake Total 3192 309 1126 Output Total 700 1450 200 Balance 482 -583 800 Weight 80.921 kg Intake: IV 718 610 5661 Sodium Chloride 0.9% 1,000 ml @ 921 996 9089 100 mls/hr IV .Q10H [facility] Rx#: [id number] Oral 240 0 Output: Void Amount 700 225 200 Urine/Stool Mix 1225 Other: Meal Dinner Percent of Meal Consumed 95% Feeding Ability Independent Urine Appearance Clear Clear Clear Urine Color Pale Pale Pale Urine Odor Normal Normal Stool Size Moderate Stool Color Black Stool Consistency Formed # Bowel Movements 1 # of times incontinent of 1 Bowels Exam: General: Alert, Awake, No acute Distress, obese Eyes/N/T: EOMI, Head/Neck: neck supple, CV: RRR, No murmurs, Pulm: Clear b/l, no wheezing/rhonchi/rales Abd: soft, nontender, +BS x4 Ext: no clubbing/cyanosis/edema Neuro: Alert, no focal deficits, moves all extremities, Skin: warm/dry OBJ DATA Labs CBC & Chem 7: 03/24/22 05:23 03/24/22 05:23 Labs: Abnormal Lab Results 03/24/22 03/24/22 03/23/22 05:23 05:23 05:23 WBC RBC 3.05 L Hgb 8.7 L Hct 29.0 L POC Hct MCHC 30.0 L Lymph # (Auto) 0.97 L POC Chloride Chloride 111 H 112 H Carbon Dioxide 19 L POC Total CO2 Anion Gap 6.0 L POC BUN BUN Creatinine 1.3 H 1.4 H POC Creatinine POC Glucose Calcium 7.8 L 8.2 L Alkaline Phosphatase 34 L 29 L Total Protein 5.2 L Globulin 1.8 L 03/23/22 03/22/22 03/22/22 05:23 18:16 14:42 WBC 3.7 L RBC 2.76 L Hgb 8.0 L 8.4 L Hct 25.6 L 26.3 L POC Hct 25.0 L MCHC Lymph # (Auto) 0.94 L POC Chloride 111 H Chloride Carbon Dioxide POC Total CO2 21.0 L Anion Gap POC BUN 32 H BUN Creatinine POC Creatinine 1.8 H POC Glucose 106 H Calcium Alkaline Phosphatase Total Protein Globulin 03/22/22 03/22/22 14:37 14:37 WBC RBC 3.10 L Hgb 8.8 L Hct 28.5 L POC Hct MCHC 30.9 L Lymph # (Auto) 0.98 L POC Chloride Chloride Carbon Dioxide 20 L POC Total CO2 Anion Gap POC BUN BUN 32 H Creatinine 1.6 H POC Creatinine POC Glucose Calcium Alkaline Phosphatase 32 L Total Protein Globulin Meds: Medications Acetaminophen (Acetaminophen 325 Mg Tablet) 650 mg PO Q6HP PRN; Protocol PRN Reason: Per Pain Protocol/Fever > 101 Last Admin: 03/22/22 20:58 Dose: 650 mg Documented by: Albuterol/Ipratropium (Ipratropium/Albuterol 3 Ml Ampul.Neb) 3 ml NEB Q4HRT PRN PRN Reason: Wheezing Ascorbic Acid (Ascorbic Acid 500 Mg Tablet) 500 mg PO DAILY [facility] Last Admin: 03/24/22 08:52 Dose: Not Given Documented by: Atorvastatin Calcium (Atorvastatin 20 Mg Tablet) 10 mg PO HS [facility] Last Admin: 03/23/22 20:23 Dose: 10 mg Documented by: Ferrous Sulfate (Ferrous Sulfate 325 Mg Tablet) 325 mg PO QAM [facility] Last Admin: 03/24/22 08:52 Dose: Not Given Documented by: Sodium Chloride (Sodium Chloride 0.9%) 1,000 mls @ 100 mls/hr IV .Q10H [facility] Last Admin: 03/24/22 09:50 Dose: 100 mls/hr Documented by: Latanoprost (Latanoprost Ophth Drops 2.5ml Bottle) 1 gtt OU QPM [facility] Last Admin: 03/23/22 20:18 Dose: Not Given Documented by: Levothyroxine Sodium (Levothyroxine 125 Mcg Tablet) 125 mcg PO ACB [facility] Last Admin: 03/24/22 07:21 Dose: 125 mcg Documented by: Losartan Potassium (Losartan 50 Mg Tablet) 50 mg PO HS [facility] Last Admin: 03/23/22 20:23 Dose: 50 mg Documented by: Midazolam HCl (Midazolam 2 Mg/2 Ml Vial) 0 mg IV ONCE [facility] Stop: 03/24/22 19:36 Ondansetron HCl (Ondansetron 4 Mg/2 Ml Vial) 4 mg IV Q6HP PRN PRN Reason: Nausea And Vomiting Pantoprazole Sodium (Pantoprazole 40 Mg Vial) 40 mg IV BIDAC [facility] Last Admin: 03/24/22 07:21 Dose: 40 mg Documented by: Brimonidine-Timolol [Combigan] 0.2%-0.5% Ophthalmic Drops 1 dose OU Q12H [facility] Last Admin: 03/24/22 08:52 Dose: Not Given Documented by: Propofol (Propofol 200 Mg/20 Ml Vial) 0 mg IV UD [facility] Stop: 03/24/22 19:36 Sodium Chloride (0.9 % Sodium Chloride 10 Ml Syringe) 10 ml IV Q8 [facility] Last Admin: 03/24/22 05:07 Dose: Not Given Documented by: Travoprost (Travoprost Ophth Drops Bottle 2.5ml) 1 gtt OU HS [facility] Last Admin: 03/23/22 20:18 Dose: Not Given Documented by: Trazodone HCl (Trazodone Hcl 50 Mg Tablet) 25 mg PO HSP PRN PRN Reason: Insomnia Vitamin D (Vitamin D3 25 Mcg Tablet) 25 mcg PO QDAY [facility] Last Admin: 03/24/22 08:52 Dose: Not Given Documented by: A/P Narrative A/P Narrative: A/P: *GI bleeding, likely upper: -EGD (03/23) did not show any signs of active/recent source of bleeding -colonoscopy (03/24) unremarkable -Protonix -f/u with Dr. Guevara regarding hiatal hernia *h/o PE: eliquis stopped given PE over 2 years ago *Essential HTN/HLD: -Continue oral antihypertensives *Hypothyroidism: *ZACHARY on CKD III w/ nephrectomy from [place]: *Obesity: BMI 34 *ppx: SCD / Protonix IV BID Code status: Evaluation Assistant Spent With Patient Time: Total time spent is greater than 50% in coordination of care (as documented) at patient's floor/unit and/or counseling patient: [facility] VTE Deep Vein Thrombosis/Pulmonary Embolism Present on Admission: No
[2022-03-24] MEDS ORDERED: MIDAZOLAM 2 MG/2 ML VIAL ONE (13:05)
[2022-03-24] MEDS ORDERED: PROPOFOL 200 MG/20 ML VIAL IV ONE ×3 (13:05)
--- NOTE | 2022-03-24 13:44 | Discharge Summary ---
Discharge Provider Provider IMPORTANT FOLLOW-UP INFORMATION FOR PCP: Patient information: Note initiated : 03/24/22 at 1:42 pm Service Date, if different from initiated Date: [] Patient: Judi Haro 81 y/o F admitted on 03/22/22 for bleeding ulcer. Chief Complaint: [] Date of admission: 03/22/22 16:49 Discharge date: 03/24/22 Primary care physician: Carri Brown Consults: 03/22/22 Consult to Physician [CONS] Stat Comment: Consulting Provider: Jeermiah Peralta Reason For Exam: Physician to Consult Consult to Physician [CONS] Stat Comment: Consulting Provider: Srinivas Guevara Reason For Exam: Physician to Consult 03/22/22 17:21 Consult to Physician [CONS] Stat Comment: Consulting Provider: Srinivas Guevara Reason For Exam: Physician to Consult COURSE Hospital Course Hospital course: History of present illness: Ms. Haro is a 81 year old F history of kidney cancer status post nephrectomy, pulmonary embolism on Eliquis, essential hypertensions, mixed dyslipidemia, hypothyroidism, chronic kidney disease stage III, presenting with 5-day history of black stool. Last prior similar episode about 8 or 9 years ago. Over the past 5 days, she is complaining of having black stool. She denies any bright red blood per rectum. She denies any hematemesis. She denies any nausea or vomiting. She denies any abdominal pain. She denies any chest pain or palpitations. She denies any shortness of breath. She denies any lightheadedness. Vital signs at ED presentations appears to be all within normal limits. H&H 8.8 and 28.5, with baseline 14.5 and 44.2, respectively. Serum creatinine level 1.8 with baseline 1.2. Admission request was made for likely upper GI bleeding with general surgeon Dr. Guevara being consulted on the case. 03/23: H/H stable overnight. No bowel movement overnight. No hematemesis. Denies abdominal pain. Denies chest pain or palpitation. Denies shortness of breath. Denies lightheadedness. Pending EGD this afternoon. Continue Protonix IV BID. Continue to hold Eliquis. 03/24: H&H stable overnight. EGD did not show any signs of active or recent source of bleeding. Status post bowel prep last night, pending colonoscopy today at 1pm by Dr. Guevara. Continue Protonix IV BID. Continue to hold Eliquis. Patient denies any abdominal pain. She denies any chest pain or palpitations. She denies any lightheadedness. She denies any nausea or vomiting. She denies any hematemesis. Passing multiple brown stools last night. Colonoscopy unremarkable. A/P: *GI bleeding, likely upper: -EGD (03/23) did not show any signs of active/recent source of bleeding -colonoscopy (03/24) unremarkable -f/u with Dr. Guevara regarding hiatal hernia *h/o PE in 2020: eliquis held, f/u with Oncologist Dr. Zarate before restarting *Essential HTN/HLD: *Hypothyroidism: *ZACHARY on CKD III w/ nephrectomy from [place]: *Obesity: BMI 34 Discharge diagnosis: GI bleed ZACHARY Secondary discharge diagnosis: History of hypertension hypothyroidism chronic kidney disease obesity history of PE several years ago Eliquis stopped Time Spent with Patient Time attestation: Total time spent providing and/or coordinating discharge services: Time spent: Greater than 30 minutes EXAM Constitutional Vitals: Temp Pulse Resp BP Pulse Ox 98.2 F 65 18 152/79 97 03/24/22 11:38 03/24/22 11:38 03/24/22 11:38 03/24/22 11:38 03/24/22 11:38 Discharge Data Data Completed and Pending Labs on day of discharge: Labs from last 24 hours 03/24/22 03/24/22 05:23 05:23 WBC 5.7 RBC 3.05 L Hgb 8.7 L Hct 29.0 L MCV 95.1 MCH 28.5 MCHC 30.0 L RDW 13.2 Plt Count 193 MPV 9.9 Neut % (Auto) 70.7 Lymph % (Auto) 17.1 [place] % (Auto) 8.5 Eos % (Auto) 3.2 Baso % (Auto) 0.5 Lymph # (Auto) 0.97 L [place] # (Auto) 0.48 Eos # (Auto) 0.18 Baso # (Auto) 0.03 Absolute Neutrophils 4.01 Sodium 142 Potassium 3.6 Chloride 111 H Carbon Dioxide 19 L Anion Gap 12.0 BUN 16 Creatinine 1.3 H GFR Calculation 38 Glucose 88 Calcium 7.8 L Total Bilirubin 0.4 AST 21 ALT 10 Alkaline Phosphatase 34 L Total Protein 6.1 Albumin 3.6 Globulin 2.5 Albumin/Globulin Ratio 1.4 Discharge Plan Patient/Caregiver Discharge Instructions Activity: increase activity as tolerated Diet: Regular Diet Prescriptions: Continued omeprazole 40 mg capsule,delayed release 40 mg capsule,delayed release(DR/EC) 40 mg PO QDAY 0RF denosumab subcut 0RF atorvastatin 10 mg tablet 1 tab PO HS 0RF latanoprost 0.005 % drops 1 drp OPHTHALMIC (EYE) QPM 0RF levothyroxine 75 mcg tablet 1 tab PO QDAY 0RF ferrous sulfate [FeroSul] 325 mg (65 mg iron) tablet 325 mg PO QAM 0RF Label Comments: [NO ORIGINAL SIG] cholecalciferol (vitamin D3) [Vitamin D3] 50 mcg (2,000 unit) tablet 1 tab PO QDAY 0RF valsartan 80 mg tablet 1 tab PO HS 0RF Discontinued Eliquis 5 mg tablet 1 tab PO BID 0RF Follow Up Plan Follow up with: Carri Brown MD [Primary Care Provider] - Srinivas Guevara MD [Physician] - (Regarding hiatal hernia) Trevon Zarate MD [Physician] - (Regarding anticoagulation) Patient Disposition: Home, Self-Care Prognosis: Fair Overall status at discharge: patient is progressing back to baseline Discharge Orders: Discharge Order (Routine); Ordered 03/24/22 Ordered By: Linus Walls [facility] VTE Deep Vein Thrombosis/Pulmonary Embolism Present on Admission: No
--- NOTE | 2022-03-24 13:55 | Colonoscopy Procedure Note ---
Colonoscopy Procedure Notes Procedure Information Patient information: Note initiated : 03/24/22 at 1:52 pm Patient: Judi Haro 81 y/o F admitted on 03/22/22 for bleeding ulcer. Pre-op diagnosis general: GI bleed Post-op diagnosis general: Same Date of Procedure: 03/24/22 Procedure: Colonoscopy Procedure narrative: After risk benefits and alternatives to the procedure were discussed with the patient at length she verbalized understanding and desire to continue with the procedure. Patient was taken to endoscopy and placed supine on the endoscopy table. Conscious sedation was administered throughout the case by anesthesia. Digital rectal exam was performed which was within normal limits. An adult colonoscope was advanced under direct vision to the cecum which was identified by the [place] foot, the appendiceal orifice and opening to the terminal ileum. Full exam upon removal of scope was significant for full exam, sigmoid diverticulosis without evidence of bleed. Internal and external hemorrhoids without evidence of active bleed. Withdraw time was >8 min. Retroflexion in the rectum was within normal limits. EBL: None Assessment: Normal screening colonoscopy. Sigmoid diverticulosis. Internal and external hemorrhoids.
== END 2022-03-24 16:48 | disposition home or self-care (01) | DRG 378 ==
LOC: ED 14:10 → MEDSUR 16:49
PROVIDERS: ADMIT Internal Medicine; ATTEND Internal Medicine

== ENCOUNTER 2025-09-29 13:14 | Observation (INO) ==
[2025-09-29 13:54] LABS: Basophils # (Auto) 0.02 K/mcL (0.00-0.30); Basophils % (Auto) 0.4 % (0.0-2.0); Eosinophils # (Auto) 0.10 K/mcL (0.00-0.70); Eosinophils % (Auto) 1.9 % (0.0-7.0); Hematocrit 40.9 % (34.1-44.9); Hemoglobin 13.0 g/dL (11.2-15.7); Lymphocytes # (Auto) 1.18 K/mcL (1.50-4.80); Lymphocytes % (Auto) 22.6 % (15.5-49.0); Mean Corpuscular HGB Conc 31.8 g/dL (31.0-36.0); Monocytes # (Auto) 0.56 K/mcL (0.10-0.90); Monocytes % (Auto) 10.7 % (1.0-12.0); Neutrophils % (Auto) 64.2 % (38.0-78.0); Platelet Count 195 K/mcL (140-440); RBC 4.40 M/mcL (3.59-5.38); WBC 5.2 K/mcL (4.5-11.0)
[2025-09-29 14:01] LABS: Partial Thromboplastin Time 34.8 sec (20.0-37.0)
[2025-09-29 14:11] LABS: ALT/SGPT 12 U/L (<40); AST/SGOT 19 U/L (<32); Albumin 4.2 gm/dL (3.2-5.2); Albumin/Globulin Ratio 1.4 (1.0-2.3); Alkaline Phosphatase 63 U/L (39-117); Anion Gap 13.0 (8.0-16.0); Bilirubin,Total 0.3 mg/dL (0.1-1.0); Blood Urea Nitrogen 23 mg/dL (8-23); Calcium 9.8 mg/dL (8.6-10.4); Carbon Dioxide 23 mmol/L (22-30); Chloride 106 mmol/L (96-108); Globulin 2.9 gm/dL (2.2-3.7); Glucose 103 mg/dL (70-105); Potassium 3.9 mmol/L (3.3-5.1); Sodium 142 mmol/L (133-145)
[2025-09-29] MEDS: ATORVASTATIN 40 MG TABLET PO ONE (14:37)
[2025-09-29] MEDS: ASPIRIN 81 MG TAB.CHEW CHEWED ONE (14:37)
[2025-09-29 15:09] LABS: INR 1.2 (0.9-1.1); Prothrombin Time 16.7 sec (11.9-14.5)
[2025-09-29 15:14] LABS: Bilirubin,Urine NEGATIVE (Negative); Color,Urine LT. YELLOW; Glucose,Urine (UA) NEGATIVE (Negative); Ketones,Urine NEGATIVE (Negative); Leukocyte Esterase,Urine TRACE /uL (Negative); PH,Urine 6.0 (5.0-9.0); Protein,Urine NEGATIVE (Negative); Specific Gravity,Urine 1.010 (1.000-1.035); Urobilinogen,Urine 0.2 mg/dL
[2025-09-29] MEDS ORDERED: POTASSIUM CHLORIDE 20 MEQ TABLET PO PRN ×2 (17:02)
[2025-09-29] MEDS ORDERED: METOCLOPRAMIDE 10 MG/2 ML VIAL IV PRN (17:02)
[2025-09-29] MEDS ORDERED: IPRATROPIUM/ALBUTEROL 3 ML AMPUL.NEB NEB PRN (17:02)
[2025-09-29] MEDS ORDERED: POTASSIUM CHLORIDE 40 MEQ in DEXTROSE 5% IN WATER 500 ML IV PRN (17:02)
[2025-09-29] MEDS ORDERED: POLYETHYLENE GLYCOL 3350 17 GM PACKET PO PRN (17:02)
[2025-09-29] MEDS ORDERED: ACETAMINOPHEN 325 MG TABLET PO PRN (17:02)
[2025-09-29] MEDS ORDERED: MAGNESIUM SULFATE 2 GM/50 ML BAG IV PRN (17:02)
[2025-09-29] MEDS ORDERED: ONDANSETRON 4 MG/2 ML VIAL IV PRN (17:02)
[2025-09-29] MEDS ORDERED: SENNOSIDES 1 TABLET PO PRN (17:02)
[2025-09-29 17:30] LABS: HDL Cholesterol 53 mg/dL (>40); LDL Cholesterol,Calculated 76 mg/dL (<100); Triglycerides 121 mg/dL (<150)
[2025-09-29] MEDS: DIAZEPAM 10 MG/2 ML SYRINGE IV ONE (17:41)
[2025-09-29] MEDS: 0.9 % SODIUM CHLORIDE 1,000 ML IV ONE (18:10)
[2025-09-29] MEDS: ATORVASTATIN 40 MG TABLET PO SCH (21:26)
[2025-09-29] MEDS: DOCUSATE SODIUM 100 MG CAPSULE PO SCH (21:27)
[2025-09-29] MEDS: LATANOPROST OPHTH DROPS 2.5ML BOTTLE OU SCH (21:27)
[2025-09-30 06:34] LABS: ALT/SGPT 8 U/L (<40); AST/SGOT 16 U/L (<32); Albumin 3.5 gm/dL (3.2-5.2); Albumin/Globulin Ratio 1.5 (1.0-2.3); Alkaline Phosphatase 53 U/L (39-117); Anion Gap 9.0 (8.0-16.0); Bilirubin,Direct 0.3 mg/dL (<0.3); Bilirubin,Total 0.5 mg/dL (0.1-1.0); Blood Urea Nitrogen 18 mg/dL (8-23); Calcium 9.2 mg/dL (8.6-10.4); Carbon Dioxide 24 mmol/L (22-30); Chloride 109 mmol/L (96-108); Globulin 2.4 gm/dL (2.2-3.7); Glucose 91 mg/dL (70-105); Phosphorous 3.6 mg/dL (2.5-4.5); Potassium 4.1 mmol/L (3.3-5.1); Sodium 142 mmol/L (133-145); Triglycerides 103 mg/dL (<150); Uric Acid 6.2 mg/dL (2.5-8.0)
[2025-09-30] MEDS: OMEPRAZOLE 20 MG CAPSULE PO SCH (07:49)
[2025-09-30] MEDS: LEVOTHYROXINE 75 MCG TABLET PO SCH (07:49)
[2025-09-30 08:21] LABS: Thyroid Stimulating Hormone 0.85 uIU/mL (0.27-5.01)
[2025-09-30] MEDS: ENOXAPARIN 30 MG/0.3 ML SYRINGE SQ SCH (09:38)
[2025-09-30] MEDS: ASPIRIN 81 MG TAB.CHEW CHEWED SCH (09:38)
[2025-09-30 13:02] VITALS: O2SAT 98
[2025-09-30 14:00] VITALS: TEMP 98.2
== END 2025-09-30 13:57 | disposition home or self-care (01) ==
LOC: ED 13:14 → ICU 13:14
PROVIDERS: ADMIT Internal Medicine; ATTEND Internal Medicine